=== PATIENT | female | born 1990 | race Caucasian/White ===

== ENCOUNTER 2023-11-08 10:16 | Emergency (ER) | payer OTHER ==
[2023-11-08] MEDS ORDERED: Sodium Chloride 0.9% 10 ML Syringe FLUSH PRN (10:53)
[2023-11-08] MEDS ORDERED: Sodium Chloride 0.9% 1,000 ML IV STA (10:53)
[2023-11-08] MEDS ORDERED: Ondansetron 4 MG/2 ML SDV IVPUSH ONE (11:19)
[2023-11-08 11:23] LABS: BASOPHILS PERCENT AUTO 0.2 % (0.0-1.0); EOSINOPHILS PERCENT AUTO 0.4 % (0.0-6.0); HEMATOCRIT 38.9 % (37.0-47.0); HEMOGLOBIN 13.9 gm/dl (12.0-16.0); IMMATURE GRAN ABSOLUTE AUTO 0.03 K/mm3 (0.00-0.05); IMMATURE GRAN PERCENT AUTO 0.3 % (0.0-0.4); LYMPHOCYTES ABSOLUTE AUTO 0.5 K/mm3 (1.0-4.8); LYMPHOCYTES PERCENT AUTO 4.8 % (24.0-44.0); MEAN CORPUSCULAR HEMOGLOBIN 29.7 pg (28.0-32.0); MEAN CORPUSCULAR HGB CONC 35.7 g/dl (32.0-36.0); MEAN CORPUSCULAR VOLUME 83.1 fl (83.0-99.0); MEAN PLATELET VOLUME 9.3 fl (9.4-12.3); MONOCYTES ABSOLUTE AUTO 0.6 K/mm3 (0.0-0.8); MONOCYTES PERCENT AUTO 6.4 % (0.0-8.0); NEUTROPHILS ABSOLUTE AUTO 8.5 K/mm3 (1.8-7.7); NEUTROPHILS PERCENT AUTO 87.9 % (41.0-71.0); PLATELET COUNT,PLT 225 K/mm3 (150-400); RED BLOOD CELL COUNT 4.68 M/mm3 (4.10-5.30); WHITE BLOOD CELL COUNT,WBC 9.62 K/mm3 (3.9-11.3)
[2023-11-08 11:48] LABS: A/G RATIO 0.8 (1-2); ALBUMIN 3.1 g/dl (3.4-5.0); ANION GAP 16.5 (5-15); BILIRUBIN TOTAL 2.5 mg/dL (0.2-1.0); CALCIUM 8.6 mg/dL (8.5-10.1); CREATININE 0.5 mg/dL (0.55-1.02); EST CRCL DRUG DOSING (CG) 129.91 mL/min; POTASSIUM,K 3.5 mEq/L (3.5-5.1); PROTEIN TOTAL,TP 6.9 g/dl (6.4-8.2)
[2023-11-08] MEDS ORDERED: Sodium Chloride 0.9% 1,000 ML IV ONE (12:52)
[2023-11-08] MEDS ORDERED: Metoclopramide 10 MG/2 ML SDV IVPUSH ONE (12:52)
[2023-11-08 12:59] LABS: APPEARANCE,URINE CLEAR (Clear); BILIRUBIN,URINE NEGATIVE (Negative); COLOR,URINE YELLOW (Yellow); GLUCOSE,URINE NEGATIVE (Negative); KETONES,URINE 2+ (Negative); LEUKOCYTE ESTERASE,URINE NEGATIVE (Negative); NITRITE,URINE NEGATIVE (Negative); OCCULT BLOOD,URINE NEGATIVE (Negative); PH,URINE 6.5 (5.0-8.0); PROTEIN,URINE NEGATIVE (Negative)
[2023-11-08 13:12] LABS: BACTERIA,URINE FEW /hpf (FEW); MUCUS,URINE MODERATE /hpf (FEW); RBC,URINE 0-5 /hpf (0-5); SQUAMOUS EPITHELIAL CELLS,UR 0-5 /hpf (0-5); WBC,URINE 0-5 /hpf (0-5)
== END 2023-11-08 14:33 | disposition home or self-care (01) ==
LOC: JD.ED 10:16
DX: O99.612 Diseases of the digestive system complicating pregnancy, second trimester (principal); Z3A.17 17 weeks gestation of pregnancy; A08.4 Viral intestinal infection, unspecified; E86.0 Dehydration; I10 Essential (primary) hypertension; Z79.899 Other long term (current) drug therapy
CPT/HCPCS: 36415; 80053; 81001; 85025; 96361; 96374; 99284; J2405; J3490; J7030; 99283

== ENCOUNTER 2024-04-08 07:20 | Inpatient (IN) | payer OTHER ==
[2024-04-08] MEDS ORDERED: Sodium Chloride 0.9% 10 ML Syringe FLUSH PRN (07:31)
[2024-04-08 08:00] LABS: BASOPHILS PERCENT AUTO 0.2 % (0.0-1.0); EOSINOPHILS ABSOLUTE AUTO 0.1 K/mm3 (0.0-0.4); EOSINOPHILS PERCENT AUTO 0.6 % (0.0-6.0); HEMATOCRIT 29.2 % (37.0-47.0); IMMATURE GRAN ABSOLUTE AUTO 0.03 K/mm3 (0.00-0.05); IMMATURE GRAN PERCENT AUTO 0.3 % (0.0-0.4); LYMPHOCYTES ABSOLUTE AUTO 1.8 K/mm3 (1.0-4.8); LYMPHOCYTES PERCENT AUTO 17.8 % (24.0-44.0); MEAN CORPUSCULAR HEMOGLOBIN 28.5 pg (28.0-32.0); MEAN CORPUSCULAR HGB CONC 35.3 g/dl (32.0-36.0); MEAN CORPUSCULAR VOLUME 80.9 fl (83.0-99.0); MEAN PLATELET VOLUME 10.5 fl (9.4-12.3); MONOCYTES ABSOLUTE AUTO 0.8 K/mm3 (0.0-0.8); MONOCYTES PERCENT AUTO 7.8 % (0.0-8.0); NEUTROPHILS ABSOLUTE AUTO 7.4 K/mm3 (1.8-7.7); NEUTROPHILS PERCENT AUTO 73.3 % (41.0-71.0); PLATELET COUNT,PLT 266 K/mm3 (150-400); RED BLOOD CELL COUNT 3.61 M/mm3 (4.10-5.30); WHITE BLOOD CELL COUNT,WBC 10.02 K/mm3 (3.9-11.3)
[2024-04-08 08:02] LABS: HEMOGLOBIN 10.3 gm/dl (12.0-16.0)
[2024-04-08] MEDS: Lactated Ringers 1,000 ML IV SCH (08:15)
[2024-04-08] MEDS: Ampicillin 2 GM in Sodium Chloride 0.9% 100 ML IV ONE (08:16)
[2024-04-08 08:24] LABS: CREATININE 0.7 mg/dL (0.55-1.02); EST CRCL DRUG DOSING (CG) 91.91 mL/min
[2024-04-08] MEDS: Oxytocin/Lactated Ringers 30 UNIT/500 ML BAG IV SCH ×2 (08:41→15:12)
[2024-04-08] MEDS ORDERED: Bupivacaine/fentaNYL/NS 100 ML Bag EPIDUR PRN (08:41)
[2024-04-08] MEDS ORDERED: fentaNYL 100 MCG/2 ML SDV EPIDUR PRN (08:41)
[2024-04-08] MEDS ORDERED: diphenhydrAMINE 50 MG/ML SDV IVPUSH PRN (08:41)
[2024-04-08] MEDS ORDERED: ePHEDrine 50 MG/ML SDV IVPUSH PRN (08:41)
[2024-04-08] MEDS ORDERED: Non-Formulary Medication 1 Each (Desvenlafaxine Succinate 25 MG Tab.Er.24h) PO SCH (09:00)
[2024-04-08] MEDS: Ampicillin 1 GM in Sodium Chloride 0.9% 100 ML IV SCH (11:41)
[2024-04-08] MEDS: Nalbuphine 10 MG/ML Syringe IVPUSH PRN (13:58)
[2024-04-08] MEDS: Misoprostol 200 MCG Tab PO STA (15:52)
[2024-04-08] MEDS: Carboprost Tromethamine 250 MCG/1 mL Vial IM ONE (15:53)
[2024-04-08] MEDS: Lidocaine 1% 50 ML MDV INJECT PRN (16:45)
[2024-04-08 17:02] LABS: BASOPHILS PERCENT AUTO 0.2 % (0.0-1.0); EOSINOPHILS PERCENT AUTO 0.1 % (0.0-6.0); HEMATOCRIT 26.5 % (37.0-47.0); HEMOGLOBIN 9.2 gm/dl (12.0-16.0); IMMATURE GRAN ABSOLUTE AUTO 0.19 K/mm3 (0.00-0.05); IMMATURE GRAN PERCENT AUTO 0.8 % (0.0-0.4); LYMPHOCYTES ABSOLUTE AUTO 1.3 K/mm3 (1.0-4.8); LYMPHOCYTES PERCENT AUTO 5.5 % (24.0-44.0); MEAN CORPUSCULAR HEMOGLOBIN 28.1 pg (28.0-32.0); MEAN CORPUSCULAR HGB CONC 34.7 g/dl (32.0-36.0); MEAN PLATELET VOLUME 10.7 fl (9.4-12.3); MONOCYTES ABSOLUTE AUTO 1.4 K/mm3 (0.0-0.8); MONOCYTES PERCENT AUTO 6.1 % (0.0-8.0); NEUTROPHILS ABSOLUTE AUTO 19.9 K/mm3 (1.8-7.7); NEUTROPHILS PERCENT AUTO 87.3 % (41.0-71.0); PLATELET COUNT,PLT 268 K/mm3 (150-400); RED BLOOD CELL COUNT 3.27 M/mm3 (4.10-5.30); WHITE BLOOD CELL COUNT,WBC 22.76 K/mm3 (3.9-11.3)
[2024-04-08 17:19] LABS: INR 0.95; PROTHROMBIN TIME 10.2 SECONDS (9.7-12.0)
[2024-04-08] MEDS: Tranexamic Acid 1,000 MG/10 ML Vial IV ONE (17:21)
[2024-04-08 17:23] LABS: PTT,PARTIAL THROMBOPLSTIN TIME 26.3 SECONDS (21.7-31.4)
[2024-04-08] MEDS: Tranexamic Acid 1,000 MG/10 ML Vial ONE (17:25)
[2024-04-08] MEDS ORDERED: Acetaminophen 325 MG Tab PO PRN (17:59)
[2024-04-08] MEDS ORDERED: Docusate Sodium 100 MG Cap PO PRN (17:59)
[2024-04-08] MEDS: Ibuprofen 600 MG Tab PO SCH (20:05)
[2024-04-09] MEDS: Benzocaine/Menthol 20%-0.5% Spray 78 GM Cannister TOP PRN (01:27)
[2024-04-09] MEDS: Witch Hazel Medicated Pads 40/Jar TOP PRN (01:28)
[2024-04-09] MEDS: Sodium Chloride 0.9% 10 ML Syringe FLUSH SCH (05:39)
[2024-04-09 06:19] LABS: HEMATOCRIT 20.9 % (37.0-47.0); MEAN CORPUSCULAR HEMOGLOBIN 28.7 pg (28.0-32.0); MEAN CORPUSCULAR HGB CONC 34.9 g/dl (32.0-36.0); MEAN CORPUSCULAR VOLUME 82.3 fl (83.0-99.0); MEAN PLATELET VOLUME 10.2 fl (9.4-12.3); PLATELET COUNT,PLT 236 K/mm3 (150-400); RED BLOOD CELL COUNT 2.54 M/mm3 (4.10-5.30); WHITE BLOOD CELL COUNT,WBC 12.25 K/mm3 (3.9-11.3)
[2024-04-09 06:22] LABS: HEMOGLOBIN 7.3 gm/dl (12.0-16.0)
== END 2024-04-10 13:00 | disposition home or self-care (01) | DRG 806 ==
LOC: JD.OB 07:20 → OBSVTOIN 15:12 → JD.OB 15:12
PROVIDERS: ADMIT Obstetrics & Gynecology; ATTEND Obstetrics & Gynecology
PROC: 10E0XZZ Delivery of Products of Conception, External Approach (ICD-10-PCS; principal; 2024-04-08)
PROC: 0KQM0ZZ Repair Perineum Muscle, Open Approach (ICD-10-PCS; 2024-04-08)
PROC: 10907ZC Drainage of Amniotic Fluid, Therapeutic from Products of Conception, Via Natural or Artificial Opening (ICD-10-PCS; 2024-04-08)
PROC: 3E0P7VZ Introduction of Hormone into Female Reproductive, Via Natural or Artificial Opening (ICD-10-PCS; 2024-04-08)
DX: O13.4 Gestational [pregnancy-induced] hypertension without significant proteinuria, complicating childbirth (principal); D62 Acute posthemorrhagic anemia; Z37.0 Single live birth; F32.1 Major depressive disorder, single episode, moderate; Z3A.37 37 weeks gestation of pregnancy; O99.344 Other mental disorders complicating childbirth; O99.824 Streptococcus B carrier state complicating childbirth; O69.81X0 Labor and delivery complicated by cord around neck, without compression, not applicable or unspecified; O70.1 Second degree perineal laceration during delivery; O72.1 Other immediate postpartum hemorrhage; O90.81 Anemia of the puerperium
CPT/HCPCS: 36415; 51701; 59025; 59409; 82565; 84450; 84460; 85025; 85027; 85384; 85610; 85730; 86592; 86850; 86900; 86901; A9270-GY; C1758; J0290; J2001; J2300; J3490; J7120; J7999